=== PATIENT | female | born 1995 | race African-American/Black ===

== ENCOUNTER 2017-02-19 15:29 | Emergency (ER) | payer MEDICAID ==
[~2017-02-19] VITALS: Ht 170.2 cm; Wt 72.0 kg
[2017-02-19 15:35] VITALS: BP 111/60
== END 2017-02-19 16:33 | disposition left against medical advice (07) ==
LOC: ER 16:18
DX: N93.9 Abnormal uterine and vaginal bleeding, unspecified (principal); Z53.21 Procedure and treatment not carried out due to patient leaving prior to being seen by health care provider